=== PATIENT | female | born 1995 | race Caucasian/White ===

== ENCOUNTER 2017-05-24 13:13 | Emergency (ER) | payer MEDICAID, OTHER ==
[2017-05-24 13:19] VITALS: O2SAT 98
--- NOTE | 2017-05-24 14:38 | EDPHY ---
H & P Smoking Status: Former smoker Time Seen by Provider: 05/24/17 14:34 HPI/ROS: CHIEF COMPLAINT: Right foot and ankle pain HISTORY OF PRESENT ILLNESS: 22-year-old female arrives via private vehicle complaining of acute right foot and ankle pain after she accidentally kicked an object and rolled her ankle. She is able to bear weight albeit with pain. Occurred earlier today. No paresthesia. No sensory or motor deficit. PHYSICAL EXAM (Prior to examination, patient consented to physical exam, hands were washed and my usual and customary physical exam procedures followed) 1) GENERAL: Well-developed, well-nourished, alert and oriented. Appears to be in no acute distress. 2) HEAD: Normocephalic 3) HEENT: Pupils equal, round, reactive to light bilaterally. 4) LUNGS: Breathing comfortably. 5) MUSCULOSKELETAL: Tender to palpation medial malleolus, tender to palpation distal 1st metatarsal. No deformity no angulation soft compartments. proximal tibia and fibula nontender .5th MT nontender negative Ramos test, compartments soft 6) SKIN: intact 7) VASCULAR: DP,PT pulses and cap refill present and brisk DIFFERENTIAL DIAGNOSIS: in no particular order including but not limited to fracture, sprain, compartment syndrome Procedure: Splint A Danny boot splint was applied by ER instrumentation engineering technician. After application of the splint I returned and re-examined the patient. The splint was adequately immobilizing the joint and distal to the splint the patient's circulation and sensation were intact. Patient shows no signs of compartment syndrome. Was given orthopedic precautions. (Oren Lopez) Constitutional: Initial Vital Signs Temperature (C) 36.7 C 05/24/17 13:16 Heart Rate 84 05/24/17 13:16 Respiratory Rate 18 05/24/17 13:16 Blood Pressure 141/97 H 05/24/17 13:16 O2 Sat (%) 98 05/24/17 13:16 O2 Delivery Mode Room Air Allergies/Adverse Reactions: nitrofurantoin [From Macrobid] Allergy (Verified 05/24/17 13:14) Home Medications: Medication Instructions Recorded NK [No Known Home Meds] 05/24/17 MDM/Departure - MDM Imaging Results: Imaging Impressions Ankle X-Ray 05/24/17 13:23 Impression: Negative right ankle series. Foot X-Ray 05/24/17 14:35 Impression: Negative right foot radiographs. Images reviewed by myself (Oren Lopez) Medications Given: Discontinued Medications Acetaminophen (Tylenol) 650 mg PO EDNOW ONE Stop: 05/24/17 14:47 Last Admin: 05/24/17 15:13 Dose: 650 mg ED Course/Re-evaluation: I did not see this patient while she was in the emergency department. However her care was the patient was in the department. I agree with treatment plan and management (Jacky Villa) - Depart Disposition: Home, Routine, Self-Care Clinical Impression: Right ankle sprain Qualifiers: Encounter type: initial encounter Involved ligament of ankle: other ligament Qualified Code(s): S93.491A - Sprain of other ligament of right ankle, initial encounter Right foot sprain Qualifiers: Encounter type: initial encounter Qualified Code(s): S93.601A - Unspecified sprain of right foot, initial encounter Condition: Good Instructions: Ankle Sprain (ED) Additional Instructions: Return to the ER immediately if you experience discoloration, have worsening pain, numbness, tingling, or any other symptoms that concern you. If you received x-rays in the emergency department today, be advised, that ligamentous , tendon, muscular, and other non-bony injury cannot be fully ruled out. Try to keep your affected extremity elevated above the level of your chest, and keep cold packs on the affected area, for the next 48 hours. Referrals: Byron Stinson MD [Medical Doctor] - 5-7 days, call for appt.
[2017-05-24] MEDS ORDERED: ACETAMINOPHEN 325 MG TAB PO ONE (14:46)
[2017-05-24 15:35] VITALS: BP 132/85; PULSE 78; RESP 16; TEMP 97.5
== END 2017-05-24 15:34 | disposition home or self-care (01) ==
DX: S93.601A Unspecified sprain of right foot, initial encounter (principal); S93.491A Sprain of other ligament of right ankle, initial encounter; Z87.891 Personal history of nicotine dependence; W22.8XXA Striking against or struck by other objects, initial encounter
CPT/HCPCS: L4386